=== PATIENT | female | born 1990 | race Caucasian/White ===

== ENCOUNTER 2018-06-15 13:41 | Emergency (ER) | payer SELFPAY ==
[~2018-06-15] VITALS: Ht 147.3 cm; Wt 54.0 kg
[2018-06-15 13:44] VITALS: BP 112/72
== END 2018-06-15 14:16 | disposition left against medical advice (07) ==
LOC: ER 13:41 → EDSEX 13:41 → ER 14:16
DX: Z53.21 Procedure and treatment not carried out due to patient leaving prior to being seen by health care provider (principal)